=== PATIENT | male | born 1975 | race African-American/Black ===

== ENCOUNTER 2018-01-26 02:41 | Emergency (ER) | payer SELFPAY ==
[2018-01-26] MEDS ORDERED: Adacel (T-DAP) 0.5 ML VIAL ONE (03:03)
[2018-01-26] MEDS ORDERED: Lidocaine 1% (PF) 30 ML VIAL ONE (03:48)
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
== END 2018-01-26 05:13 | disposition home or self-care (01) ==
LOC: ERS 02:41
DX: S01.511A Laceration without foreign body of lip, initial encounter (principal); Z23 Encounter for immunization; Y00.XXXA Assault by blunt object, initial encounter
CPT/HCPCS: 12051; 70450; 70486; 90471; 90715; J2001

== ENCOUNTER 2018-02-11 12:48 | Emergency (ER) | payer SELFPAY | END 2018-02-11 13:33 | disposition home or self-care (01) | LOC: ERS 12:48 | DX: S01.511D Laceration without foreign body of lip, subsequent encounter (principal); X58.XXXD Exposure to other specified factors, subsequent encounter ==